=== PATIENT | male | born 1975 | race Two or more races ===

== ENCOUNTER 2025-01-06 19:25 | Emergency (ER) | payer SELFPAY ==
[2025-01-06 19:27] VITALS: BMI 34.2
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
[2025-01-06 19:55] VITALS: BP 179/133; BP 203/126; PULSE 78; RESP 16; TEMP 36.9; O2SAT 98
== END 2025-01-06 20:25 | disposition home or self-care (01) ==
LOC: SERX 20:20
PROVIDERS: Emergency Provider Emergency Medicine
DX: H57.11 Ocular pain, right eye (principal); R03.0 Elevated blood-pressure reading, without diagnosis of hypertension
CPT/HCPCS: 99281